=== PATIENT | male | born 1985 | race Caucasian/White ===

== ENCOUNTER 2019-01-13 22:18 | Inpatient (IN) | payer BC ==
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
--- NOTE | 2019-01-13 22:33 | RAD ---
EXAM: XR Pelvis AP STANDARD PROVIDED CLINICAL HISTORY: Pain FINDINGS: There is no evidence for fracture or other acute osseous abnormality. Alignment appears anatomic. Margo nt spaces appear preserved. IMPRESSION: No evidence for an acute osseous abnormality. If there is persistent clinical concern, conservative m anagement and follow-up imaging advised.
[2019-01-13 22:44] LABS: #Basophils 0.1 thou/uL (0.0-0.2); #Eosinphils 0.1 thou/uL (0.0-0.7); #Lymphocytes 2.2 thou/uL (1.20-3.40); #Monocytes 0.7 thou/uL (0.11-0.59); #Neutrophils 10.9 thou/uL (1.40-6.50); %Basophils 0.6 % (0.0-1.0); %Eosinophils 0.7 % (0.0-10.0); %Lymphocytes 15.8 % (21.0-51.0); %Neutrophils 77.9 % (42.0-75.0); Hemoglobin 14.3 g/dL (14.0-18.0); Mean Corpuscular HGB CONC 33.7 g/dL (32.0-36.0); Mean Corpuscular Hemoglobin 30.3 pg (27.0-31.0); Mean Corpuscular Volume 89.8 fL (78.0-98.0); Mean Platelet Volume 6.4 fL (7.4-10.4); Platelet Count 369 thou/uL (130-400); RBC Distribution Width 12.5 % (11.5-14.5); Red Blood Cell (RBC) Count 4.74 mill/uL (4.70-6.10)
[2019-01-13 22:47] LABS: Prothrombin Time 13.2 SEC (12.0-14.7)
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
[2019-01-13 22:55] LABS: ALT (SGPT) 21 U/L (8-55); AST (SGOT) 23 U/L (5-34); Albumin 4.5 g/dL (3.5-5.0); Alcohol Less than 10 mg/dL (Less than 10); Alkaline Phosphatase 61 U/L (40-150); Anion Gap 16 mmol/L (10-20); BUN (Urea Nitrogen) 23 mg/dL (8.9-20.6); Bilirubin, Total 0.3 mg/dL (0.2-1.2); Calc. Creatinine Clearance 0 mL/min (70-130); Calcium 9.9 mg/dL (7.8-10.44); Carbon Dioxide 20 mmol/L (22-29); Chloride 104 mmol/L (98-107); Estimated GFR-MDRD 72; Globulin 3.1 g/dL (2.4-3.5); Glucose 164 mg/dL (70-105); Potassium 3.3 mmol/L (3.5-5.1); Protein, Total 7.6 g/dL (6.0-8.3); Sodium 137 mmol/L (136-145)
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
[2019-01-13 22:57] LABS: Lactic Acid 1.6 mmol/L (0.5-2.2)
[2019-01-13 22:58] LABS: PTT 22.7 SEC (22.9-36.1)
[2019-01-13] MEDS ORDERED: Morphine 4 MG/ML VIAL ONE ×2 (23:05→23:24)
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
[2019-01-13] MEDS ORDERED: Adacel (T-DAP) 0.5 ML SYRINGE ONE (23:11)
[2019-01-13] MEDS ORDERED: Dextrose 5% in Water 1,000 ML IV PRN (23:20)
[2019-01-13] MEDS ORDERED: Morphine 2 MG/ML SYRINGE SLOW IVP PRN (23:20)
[2019-01-13] MEDS ORDERED: Ondansetron PF 4 MG/2 ML Vial IVP PRN (23:20)
[2019-01-13] MEDS ORDERED: Dextrose 50% Abboject 50 ML SYRINGE SLOW IVP PRN (23:20)
[2019-01-13] MEDS ORDERED: Ondansetron ODT 4 MG TAB PO PRN (23:20)
[2019-01-13] MEDS ORDERED: hydrALAZINE 20 MG/ML VIAL SLOW IVP PRN (23:20)
[2019-01-13] MEDS ORDERED: traMADol HCl 50 MG TAB PO PRN (23:25)
[2019-01-13] MEDS ORDERED: Sodium Chloride 0.9% 1,000 ML IV SCH (23:30)
--- NOTE | 2019-01-13 23:31 | RAD ---
EXAM: XR Wrist 3 Rt View STANDARD PROVIDED CLINICAL HISTORY: Pain COMPARISON: None FINDINGS: Nondisplaced intra-articular radial styloid fracture. IMPRESSION: As above.
--- NOTE | 2019-01-13 23:32 | RAD ---
EXAM: XR Forearm Lt 2 View STANDARD PROVIDED CLINICAL HISTORY: Pain FINDINGS: There is no evidence for fracture or other acute osseous abnormality. Alignment appears anatomic. Margo nt spaces appear preserved. Radiodense material is noted overlying the soft tissues of the forearm which may be on the skin surface or related to foreign bodies. IMPRESSION: No evidence for an acute osseous abnormality. If there is persistent clinical concern, conservative m anagement and follow-up imaging advised.
--- NOTE | 2019-01-13 23:33 | RAD ---
EXAM: XR Hand Lt 3 View STANDARD PROVIDED CLINICAL HISTORY: Trauma COMPARISON: None FINDINGS: Multiple radiodensities overlie the radial aspects of the hand and visualized distal forearm. The lar gest of these is somewhat triangular in shape and measures about 6 mm overlying the dorsal aspect of the second metacarpal. No evidence for fracture or other acute osseous abnormality. IMPRESSION: Soft tissue findings as above.
--- NOTE | 2019-01-13 23:34 | RAD ---
EXAM: XR Foot Rt 3 View STANDARD PROVIDED CLINICAL HISTORY: Trauma COMPARISON: None FINDINGS: Nondisplaced transversely oriented third metatarsal shaft fracture. IMPRESSION: As above.
[2019-01-13 23:50] LABS: Phosphorus 3.1 mg/dL (2.3-4.7)
[2019-01-13] MEDS ORDERED: Potassium Phosphate 30 MMOL in Sodium Chloride 0.9% 500 ML IVPB SCH (23:59)
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
[2019-01-14] MEDS: Sodium Chloride 0.9% 1,000 ML IV SCH ×2 (01:20→09:39)
[2019-01-14] MEDS: Acetaminophen 1,000 MG in Premix Bag 1 BAG IVPB SCH ×2 (01:55→04:48)
[2019-01-14] MEDS: Ketorolac Tromethamine 30 MG/ML VIAL IVP SCH ×2 (02:01→04:48)
[2019-01-14] MEDS: traMADol HCl 50 MG TAB PO SCH ×3 (02:02→11:50)
[2019-01-14 02:06] VITALS: BMI 22.7
[2019-01-14 04:42] VITALS: BP 107/65; TEMP 98.1
[2019-01-14 05:30] LABS: #Monocytes 0.8 thou/uL (0.11-0.59); #Neutrophils 8.2 thou/uL (1.40-6.50); %Eosinophils 0.2 % (0.0-10.0); %Lymphocytes 10.4 % (21.0-51.0); %Monocytes 7.5 % (0.0-10.0); %Neutrophils 81.9 % (42.0-75.0); Hemoglobin 12.8 g/dL (14.0-18.0); Mean Corpuscular HGB CONC 31.9 g/dL (32.0-36.0); Mean Corpuscular Hemoglobin 28.9 pg (27.0-31.0); Mean Corpuscular Volume 90.4 fL (78.0-98.0); Mean Platelet Volume 6.2 fL (7.4-10.4); Platelet Count 313 thou/uL (130-400); RBC Distribution Width 12.6 % (11.5-14.5); Red Blood Cell (RBC) Count 4.42 mill/uL (4.70-6.10)
[2019-01-14 06:07] LABS: Anion Gap 14 mmol/L (10-20); BUN (Urea Nitrogen) 17 mg/dL (8.9-20.6); Calc. Creatinine Clearance 125 mL/min (70-130); Calcium 8.9 mg/dL (7.8-10.44); Carbon Dioxide 21 mmol/L (22-29); Chloride 107 mmol/L (98-107); Estimated GFR-MDRD Greater than 90; Glucose 90 mg/dL (70-105); Phosphorus 4.9 mg/dL (2.3-4.7); Potassium 4.2 mmol/L (3.5-5.1); Sodium 138 mmol/L (136-145)
[2019-01-14] MEDS ORDERED: Fentanyl 100 MCG/2 ML VIAL ONE (06:41)
[2019-01-14] MEDS ORDERED: Ibuprofen 800 MG TAB PO SCH ×2 (07:30→18:00)
[2019-01-14] MEDS ORDERED: Promethazine HCl 25 MG/ML VIAL IM PRN (08:31)
[2019-01-14] MEDS ORDERED: Ondansetron HCl/PF 4 MG/2 ML Vial IVP PRN (08:31)
[2019-01-14] MEDS ORDERED: Promethazine HCl 25 MG/ML VIAL SLOW IVP PRN (08:31)
[2019-01-14] MEDS ORDERED: Meperidine HCl/PF 25 MG/ML VIAL ONE (08:44)
[2019-01-14] MEDS ORDERED: Acetaminophen 500 MG TAB PO SCH (12:00)
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
[2019-01-14] MEDS ORDERED: Gabapentin 300 MG CAP PO SCH (15:00)
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
== END 2019-01-14 15:45 | disposition home or self-care (01) | DRG 502 ==
LOC: ERS 22:18 → SURG A 23:20
PROVIDERS: ADMIT Surgery; ATTEND Surgery
PROC: 0KCB0ZZ Extirpation of Matter from Left Lower Arm and Wrist Muscle, Open Approach (ICD-10-PCS; principal; 2019-01-14)
PROC: 0PSH35Z Reposition Right Radius with External Fixation Device, Percutaneous Approach (ICD-10-PCS; 2019-01-14)
PROC: 0JCK0ZZ Extirpation of Matter from Left Hand Subcutaneous Tissue and Fascia, Open Approach (ICD-10-PCS; 2019-01-14)
PROC: 2W3SXYZ Immobilization of Right Foot using Other Device (ICD-10-PCS; 2019-01-14)
DX: S52.501A Unspecified fracture of the lower end of right radius, initial encounter for closed fracture (principal); S40.812A Abrasion of left upper arm, initial encounter; S92.331A Displaced fracture of third metatarsal bone, right foot, initial encounter for closed fracture; I95.9 Hypotension, unspecified; E87.6 Hypokalemia; V49.49XA Driver injured in collision with other motor vehicles in traffic accident, initial encounter; Y93.89 Activity, other specified; Y92.488 Other paved roadways as the place of occurrence of the external cause
CPT/HCPCS: 29125; 36415; 36430; 70450; 71045; 71260; 72125; 72170; 74177; 80048; 80053; 80307; 82550; 83605; 83735; 84100; 85025; 85610; 85730; 86850; 86900; 86901; 90471; 90715; 96361; 96365; 96367; 96375; 99292; G0390; J0131; J0690; J1885; J2175; J2270; J3010; J7050; P9048

== ENCOUNTER 2019-04-29 15:19 | Outpatient (CLI) | payer BC ==
--- NOTE | 2019-04-29 17:40 | MRI ---
MRI Upper Ext Jt Lt WO Con History: Strain of left rotator cuff Comparison: None. Findings: Biceps tendon: Thin attenuated extra articular biceps tendon. There is also attenuation of the intra-articular tendon. High-grade partial-thickness tear at the intertubercular groove extra articular tendon with the intra-articular and proximal intervertebral groove only having approximatel y 50% volume remaining. Labrum: Tear throughout the posterior superior and posterior inferior labrum. There is also concern f or a tear of the anterior inferior labrum although poorly evaluated without intra-articular contrast. Rotator cuff: High-grade partial articular surface tendon avulsion supraspinatus tendon from the foot print involving approximately 50% of the fiber width from the footprint retracted to the mid humeral head. There is some scar and granulation tissue bridging the torn fibers. There is also a sin gle focal full-thickness perforation the posterior fibers from the footprint measuring 4 mm in transverse dimension. Infraspinatus tendon is intact. Subscapularis tendon is intact. Muscles: Normal muscle signal and bulk. Bones: Type I acromion. Normal glenoid version. Impression: 1. 50% partial tear extra articular biceps tendon level of the proximal humeral metaphysis with appro ximately 50% of the biceps volume extending superiorly into the intertubercular groove and within the shoulder joint. 2. Tear throughout the posterior superior, posterior inferior, as well as anterior inferior labrum. 3. Partial articular surface supraspinatus tendon avulsion from the footprint retracted to the mid hu meral head involving 50% of the tendon width. There is some bridging scar or granulation tissue. 4. High-grade full-thickness perforation posterior 4 mm fiber supraspinatus tendon from the footprint with a 5 mm gap.
== END 2019-04-29 15:20 | disposition home or self-care (01) ==
LOC: BICMRI 15:19
PROVIDERS: ATTEND Physician Assistant Surgical
DX: S46.012A Strain of muscle(s) and tendon(s) of the rotator cuff of left shoulder, initial encounter (principal); S46.212A Strain of muscle, fascia and tendon of other parts of biceps, left arm, initial encounter; S43.432A Superior glenoid labrum lesion of left shoulder, initial encounter

== ENCOUNTER 2019-11-09 06:29 | Outpatient (CLI) | payer BC, OTHER ==
[2019-11-09 16:54] LABS: #Eosinphils 0.1 thou/uL (0.0-0.7); #Lymphocytes 1.7 thou/uL (1.20-3.40); #Monocytes 0.4 thou/uL (0.11-0.59); #Neutrophils 6.1 thou/uL (1.40-6.50); %Basophils 0.5 % (0.0-1.0); %Eosinophils 1.2 % (0.0-10.0); %Lymphocytes 20.7 % (21.0-51.0); %Monocytes 5.2 % (0.0-10.0); %Neutrophils 72.4 % (42.0-75.0); Hemoglobin 14.5 g/dL (14.0-18.0); Mean Corpuscular HGB CONC 33.3 g/dL (32.0-36.0); Mean Corpuscular Hemoglobin 30.8 pg (27.0-31.0); Mean Corpuscular Volume 92.3 fL (78.0-98.0); Mean Platelet Volume 6.6 fL (7.4-10.4); Platelet Count 297 thou/uL (130-400); RBC Distribution Width 11.9 % (11.5-14.5); Red Blood Cell (RBC) Count 4.72 mill/uL (4.70-6.10); White Blood Cell (WBC) Count 8.4 thou/uL (4.8-10.8)
[2019-11-10 11:52] LABS: SARS-CoV-2 MS2 Positive; SARS-CoV-2 N Gene Negative; SARS-CoV-2 S Gene Negative; SARS-CoV-2 orf1ab Negative
== END 2019-11-09 06:30 | disposition home or self-care (01) ==
LOC: LABBT 06:29
PROVIDERS: ATTEND Orthopaedic Surgery Hand Surgery
DX: Z01.812 Encounter for preprocedural laboratory examination (principal); Z11.59 Encounter for screening for other viral diseases; S64.22XA Injury of radial nerve at wrist and hand level of left arm, initial encounter
CPT/HCPCS: 85025; 87635; U0003

== ENCOUNTER 2019-11-11 07:48 | Day surgery (SDC) | payer BC ==
[2019-11-09 16:07] VITALS: BMI 24.7
[2019-11-11] MEDS ORDERED: Betamet Acet/Betamet Na Ph 30 MG/5 ML VIAL ONE (10:46)
[2019-11-11] MEDS ORDERED: Bacitracin Zinc Ointment 30 gm TUBE ONE (10:46)
[2019-11-11] MEDS ORDERED: Bupivacaine PF 0.5% 30 ML VIAL ONE (10:46)
[2019-11-11] MEDS ORDERED: HYDROmorphone 0.5 MG/0.5 ML SYRINGE ONE (10:57)
[2019-11-11] MEDS ORDERED: Ondansetron PF 4 MG/2 ML Vial ONE (12:27)
[2019-11-11] MEDS ORDERED: Ketorolac Tromethamine 30 MG/ML VIAL ONE (12:27)
[2019-11-11] MEDS ORDERED: Lidocaine 1% PF 5 ML VIAL ONE (12:27)
[2019-11-11] MEDS ORDERED: Dexamethasone 20 MG/5 ML VIAL ONE (12:27)
[2019-11-11] MEDS ORDERED: PROPOFOL 200 MG/20 ML VIAL ONE (12:27)
[2019-11-11] MEDS ORDERED: HYDROcodone/Acetaminophen 5/325 mg Tablet ONE (15:56)
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
== END 2019-11-11 16:22 | disposition home or self-care (01) ==
LOC: SDC 07:48
PROVIDERS: ATTEND Orthopaedic Surgery Hand Surgery
PROC: 01Q60ZZ Repair Radial Nerve, Open Approach (ICD-10-PCS; principal; 2019-11-11)
DX: S64.22XA Injury of radial nerve at wrist and hand level of left arm, initial encounter (principal); L91.0 Hypertrophic scar; Z91.018 Allergy to other foods; V49.9XXA Car occupant (driver) (passenger) injured in unspecified traffic accident, initial encounter; W25.XXXA Contact with sharp glass, initial encounter
CPT/HCPCS: 88305; J0690; J0702; J1100; J1170; J1885; J2001; J2405; J2704; S0020